=== PATIENT | female | born 1975 | race African-American/Black ===

== ENCOUNTER 2022-02-08 23:43 | Emergency (ER) | payer BC, OTHER ==
[~2022-02-08] VITALS: Ht 160 cm; Wt 60.0 kg
[2022-02-09] MEDS ORDERED: ACETAMINOPHEN 325MG TABLET PO ONE (00:15)
[2022-02-09 01:00] VITALS: BP 109/68
== END 2022-02-09 02:00 | disposition home or self-care (01) ==
LOC: ER 23:43
DX: J06.9 Acute upper respiratory infection, unspecified (principal)
CPT/HCPCS: 71045; 87804; 99284